=== PATIENT | female | born 1965 ===

== ENCOUNTER → 2020-07-08 | Day surgery (SDC) | payer OTHER ==
[~2020-07-08] MED LIST: COLACE100 MG PO; LEVOTHYROXINE25 MCG PO; METFORMIN HCL500 M3 PO; NEURONTIN300 MG PO; PERCOCET 5-3251 EACH PO; SINGULAIR5 MG PO
== END | disposition home or self-care (01) ==
LOC: ADM 07-01 11:30 → CIR.AMB 08:45
PROVIDERS: ATTEND Surgery
DX: D12.9 Benign neoplasm of anus and anal canal (principal); K64.4 Residual hemorrhoidal skin tags; Z20.822 Contact with and (suspected) exposure to COVID-19